=== PATIENT | male | born 1940 | race Caucasian/White ===

== ENCOUNTER 2018-01-19 09:49 | Emergency (ER) | END 2018-01-19 14:00 | disposition home or self-care (01) ==

== ENCOUNTER 2018-08-21 19:29 | Emergency (ER) | END 2018-08-21 20:05 | disposition left against medical advice (07) ==

== ENCOUNTER 2018-09-05 15:22 | Observation (INO) | END 2018-09-06 19:00 | disposition home or self-care (01) ==

== ENCOUNTER 2018-09-07 10:25 | Emergency (ER) | END 2018-09-07 13:35 | disposition home or self-care (01) ==

== ENCOUNTER 2019-03-10 08:57 | Emergency (ER) | payer BC, MEDICAID ==
[~2019-03-10] VITALS: Ht 177.8 cm; Wt 87.9 kg
[~2019-03-10 08:57] MED LIST: BENA10TA4 PO
[2019-03-10 09:00] VITALS: Ht 177.8 cm; Wt 87.9 kg
[2019-03-10 09:30] VITALS: RESP 18
[2019-03-10 10:50] VITALS: BP 123/63; PULSE 67
--- NOTE | 2019-03-10 11:14 | ERD ---
ER Documentation Chief Complaint Chief Complaint high blood pressure denies headache, asymptomatic HPI 78-year-old male past medical history of CVA and hypertension presents for elevated blood pressure times this morning. He states that at home he measured his blood pressure and was noted to be 190 and he also had one reading that was 220. Yesterday 'blood pressure was 159. Patient is currently on benazepril 20 mg daily. He denies any symptoms. He denies headache, dizziness, chest pain, shortness of breath. No treatment tried at home. ROS All systems reviewed and are negative except as per history of present illness. Medications Home Meds Reported Medications Benazepril Hcl* (Benazepril Hcl*) 10 Mg Tablet, 10 MG PO DAILY, #30 TAB 09/05/18 Allergies Allergies: Coded Allergies: No Known Allergy (Unverified , 09/07/18) PMhx/Soc History of Surgery: Yes (hemorrhoidectomy, TURP W/ CYSTOSCOPY 09/05/18) Anesthesia Reaction: No Hx Neurological Disorder: No Hx Respiratory Disorders: No Hx Cardiac Disorders: Yes (htn) Hx Psychiatric Problems: No Hx Miscellaneous Medical Probl: Yes (BPH) Hx Alcohol Use: No Hx Substance Use: No Hx Tobacco Use: No Smoking Status: Never smoker Physical Exam Vitals Vital Signs Date Temp Pulse Resp B/P (MAP) Pulse Ox O2 O2 Flow FiO2 Time Delivery Rate 03/10/19 67 123/63 10:50 (83) 03/10/19 66 174/86 Room Air 09:31 (115) 03/10/19 69 18 181/85 Room Air 09:30 (117) 03/10/19 98.3 69 19 182/95 98 09:00 (124) Physical Exam Const: No acute distress Head: Atraumatic Eyes: Normal Conjunctiva ENT: Normal External Ears, Nose and Mouth. Neck: Full range of motion. No meningismus. Resp: Clear to auscultation bilaterally Cardio: Regular rate and rhythm, no murmurs, bilateral radial and dorsalis pedis pulses intact Abd: Soft, non tender, non distended. Normal bowel sounds Skin: No petechiae or rashes Back: No midline or flank tenderness Ext: No cyanosis, or edema, bilateral upper and lower extremity muscle strength 5 out of 5 Neur: Awake and alert, bilateral upper and lower extremities sensation intact Psych: Normal Mood and Affect Results 24 hrs Current Medications Medications Dose Sig/Alice Start Time Status Last (Trade) Ordered Route PRN Stop Time Admin Dose Reason Admin Clonidine 0.1 mg ONCE ONCE 03/10/19 DC 03/10/19 (Catapres) PO 10:00 09:48 03/10/19 10:01 Procedures/MDM Medical Decision Making: Differential diagnosis includes but not limited to hypertensive urgency, malignant hypertension, infection Patient appeared well on physical exam. Blood pressure was noted to be 182/95 in the ER. Patient was asymptomatic ED course: Patient was given clonidine. Blood pressure improved to 123/63 Patient advised to follow with primary care physician for medication adjustment. No signs of infection at the moment. Patient advised to follow up with PCP in 1-2 days. Patient advised to return to ED for new or worsening symptoms. Patient stable on discharge from the ED. Disclaimer: Inadvertent spelling and grammatical errors are likely due to EHR/dictation software use and do not reflect on the overall quality of patient care. Also, please note that the electronic time recorded on this note does not necessarily reflect the actual time of the patient encounter. Departure Diagnosis: Primary Impression: Hypertensive urgency Condition: Fair Patient Instructions: High Blood Pressure (Hypertension) Referrals: [facility] YOU HAVE RECEIVED A MEDICAL SCREENING EXAM AND THE RESULTS INDICATE THAT YOU DO NOT HAVE A CONDITION THAT REQUIRES URGENT TREATMENT IN THE EMERGENCY DEPARTMENT. FURTHER EVALUATION AND TREATMENT OF YOUR CONDITION CAN WAIT UNTIL YOU ARE SEEN IN YOUR DOCTORS OFFICE WITHIN THE NEXT 1-2 DAYS. IT IS YOUR RESPONSIBILITY TO MAKE AN APPOINTMENT FOR FOLOW-UP CARE. IF YOU HAVE A PRIMARY DOCTOR --you should call your primary doctor and schedule an appointment IF YOU DO NOT HAVE A PRIMARY DOCTOR YOU CAN CALL OUR PHYSICIAN REFERRAL HOTLINE AT IF YOU CAN NOT AFFORD TO SEE A PHYSICIAN YOU CAN CHOSE FROM THE FOLLOWING [facility] [address] [facility] [address] [facility] [facility] [address] [facility] [address] [facility] [address] [facility]. [facility]. [address] Additional Instructions: Llame al doctor MAANA y nicholas jewell LIZZ PARA DENTRO DE 1-2 OLIVERA.Dgale a la secre taria que nosotros le instruimos hacer esta lizz.Avise o llame si mcmahon condicin se empeora antes de la lizz. Regresa aqui si peor o no mejor. YAQUELIN CHANG DO Mar 10, 2019 11:14
== END 2019-03-10 11:19 | disposition home or self-care (01) ==
LOC: FTE 08:57
DX: I16.0 Hypertensive urgency (principal); Z86.73 Personal history of transient ischemic attack (TIA), and cerebral infarction without residual deficits
CPT/HCPCS: 99283; Z7610

== ENCOUNTER 2019-07-10 09:02 | Emergency (ER) | payer BC ==
[~2019-07-10] VITALS: Ht 175.3 cm; Wt 88.2 kg
[2019-07-10 09:08] VITALS: Ht 175.3 cm; Wt 88.2 kg
--- NOTE | 2019-07-10 09:20 | ERD ---
ER Documentation Chief Complaint Chief Complaint high blood pressure; denies headache HPI 78-year-old male presents the emergency department complaining of high blood pressure. Patient states that his blood pressure is chronically high. He states he is compliant with his benazepril and hydrochlorothiazide. He states he took his blood pressure this morning and it was noted to be elevated with pressures as high as over 200 systolic. However, he reported no symptoms and states that he feels well. He states he has no headache or focal weakness or numbness. He states he has no chest pain, palpitations, shortness of breath. ROS All systems reviewed and are negative except as per history of present illness. Medications Home Meds Reported Medications Benazepril Hcl* (Benazepril Hcl*) 10 Mg Tablet, 10 MG PO DAILY, #30 TAB 09/05/18 Allergies Allergies: Coded Allergies: No Known Allergy (Unverified , 09/07/18) PMhx/Soc History of Surgery: Yes (hemorrhoidectomy, TURP W/ CYSTOSCOPY 09/05/18) Anesthesia Reaction: No Hx Neurological Disorder: No Hx Respiratory Disorders: No Hx Cardiac Disorders: Yes (htn) Hx Psychiatric Problems: No Hx Miscellaneous Medical Probl: Yes (BPH, STROKE 2013) Hx Alcohol Use: No Hx Substance Use: No Hx Tobacco Use: No Smoking Status: Never smoker FmHx Noncontributory for chief complaint Physical Exam Vitals Vital Signs Date Temp Pulse Resp B/P (MAP) Pulse Ox O2 O2 Flow FiO2 Time Delivery Rate 07/10/19 97.4 75 20 172/81 100 09:08 (111) Physical Exam GENERAL: The patient is well developed and appropriate for usual state of health in no apparent distress HEENT: Pupils equal, round, and reactive to light. EOMI. There is no scleral icterus. NECK: C-spine is soft and supple, there is no meningismus. There is no cervical lymphadenopathy. LUNGS: Clear to auscultation bilaterally. There are no rales, wheezes or rhonchi. HEART: Regular rate and rhythm, no murmurs, clicks, rubs or gallops. ABDOMEN: Soft, non-tender, non-distended. There are bowel sounds in all four quadrants. No rebound or guarding. EXTREMITIES: There is no peripheral cyanosis or edema. No focal swelling or erythema. NEURO: The patient moves all four extremities with 5/5 strength. Cranial nerves II - XII are intact. Normal gait. Alert and oriented SKIN: There is no apparent rash or petechiae. HEME/LYMPHATIC: There is no evidence of excessive bruising or lymphedema. PSYCHIATRIC: The patient does not appear anxious or depressed. Procedures/MDM Patient was taken to a room, seen and examined Medical decision makin-year-old male presents with asymptomatic hypertension. At this time he has no evidence of endorgan dysfunction related to his blood pressure with no indications of cardiac ischemia, stroke or other concerns. His blood pressure is elevated but not dangerously so and he seems to be appropriate for outpatient chronic care of his blood pressure. I have recommended changes to his medications to help. Departure Diagnosis: Primary Impression: Hypertension Condition: Stable Patient Instructions: High Blood Pressure (Hypertension) Referrals: [facility] YOU HAVE RECEIVED A MEDICAL SCREENING EXAM AND THE RESULTS INDICATE THAT YOU DO NOT HAVE A CONDITION THAT REQUIRES URGENT TREATMENT IN THE EMERGENCY DEPARTMENT. FURTHER EVALUATION AND TREATMENT OF YOUR CONDITION CAN WAIT UNTIL YOU ARE SEEN IN YOUR DOCTORS OFFICE WITHIN THE NEXT 1-2 DAYS. IT IS YOUR RESPONSIBILITY TO MAKE AN APPOINTMENT FOR FOLOW-UP CARE. IF YOU HAVE A PRIMARY DOCTOR --you should call your primary doctor and schedule an appointment IF YOU DO NOT HAVE A PRIMARY DOCTOR YOU CAN CALL OUR PHYSICIAN REFERRAL HOTLINE AT IF YOU CAN NOT AFFORD TO SEE A PHYSICIAN YOU CAN CHOSE FROM THE FOLLOWING [facility] [address] [facility]. [facility] [address] [facility]. [facility] [address] [facility]. [facility] [address] [facility]. [facility] [address] [facility]. [facility]. [address] Additional Instructions: Increase the HYDROCHLOROTHIAZIDE to two pills a day. JANETH SEQUEIRA Jul 10, 2019 09:20
[2019-07-10 09:51] VITALS: BP 165/89; PULSE 65; RESP 16
== END 2019-07-10 10:12 | disposition home or self-care (01) ==
LOC: E/R 09:02
DX: I10 Essential (primary) hypertension (principal); Z86.73 Personal history of transient ischemic attack (TIA), and cerebral infarction without residual deficits
CPT/HCPCS: 99282